=== PATIENT | female | born 1995 | race Hispanic/Latino ===

== ENCOUNTER 2024-08-24 14:39 | Outpatient (CLI) | payer BC | END 2024-08-24 14:40 | disposition home or self-care (01) | LOC: CSHMRI 14:39 | PROVIDERS: ATTEND Nurse Practitioner Family | DX: M47.22 Other spondylosis with radiculopathy, cervical region (principal); M43.8X2 Other specified deforming dorsopathies, cervical region | CPT/HCPCS: 72141 ==

== ENCOUNTER 2025-07-10 12:27 | Emergency (ER) | payer BC ==
[2025-07-10] MEDS ORDERED: diphenhydrAMINE 50 MG/ML VIAL ONE (13:23)
[2025-07-10] MEDS ORDERED: Metoclopramide HCl 10 MG (2 mL) VIAL ONE (13:24)
[2025-07-10] MEDS ORDERED: Acetaminophen 500 MG TAB ONE (13:24)
[2025-07-10 14:07] LABS: #Basophils 0.03 10x3/uL (0.0-0.2); #Eosinophils 0.18 10x3/uL (0.0-0.5); #Monocytes 0.50 10x3/uL (0.0-1.1); #Neutrophils 5.23 10x3/uL (1.5-8.4); %Basophils 0.4 % (0.0-2.0); %Eosinophils 2.3 % (0.0-6.0); %Lymphocytes 25.3 % (18.0-47.0); %Monocytes 6.3 % (0.0-10.0); %Neutrophils 65.2 % (40.0-75.0); Hematocrit 41.4 % (34.9-44.5); Hemoglobin 13.3 g/dL (12.0-15.5); Mean Corpuscular Hemoglobin 30.3 pg (27.0-33.0); Mean Corpuscular Volume 94.3 fL (81.6-98.3); Platelet Count 380 10x3/uL (150-450); Red Blood Cell (RBC) Count 4.39 10x6/uL (3.90-5.03); White Blood Cell (WBC) Count 8.00 10x3/uL (3.5-10.5)
[2025-07-10 14:27] LABS: BHCG - Serum Negative (NEGATIVE); Pregs Control Background? CLEAR/WHITE (CLR/WHITE); Pregs Control Bar Appear? YES (CONTROL BAR)
[2025-07-10 14:33] LABS: ALT (SGPT) 53 U/L (Less than 34); AST (SGOT) 34 U/L (11-34); Albumin 4.1 g/dL (3.1-4.5); Alkaline Phosphatase 82 U/L (40-110); Anion Gap 10 mmol/L (10-20); BUN (Urea Nitrogen) 10 mg/dL (7.0-18.7); Bilirubin, Total 0.2 mg/dL (0.3-1.2); Calc. Creatinine Clearance 0 mL/min (70-130); Calcium 9.2 mg/dL (7.8-10.44); Carbon Dioxide 30 mmol/L (22-29); Chloride 106 mmol/L (98-107); Globulin 2.8 g/dL (2.4-3.5); Glucose 83 mg/dL (70-105); Potassium 4.1 mmol/L (3.5-5.1); Sodium 142 mmol/L (136-145)
[2025-07-10] MEDS ORDERED: Ketorolac Tromethamine 30 MG (1 mL) VIAL ONE (14:51)
== END 2025-07-10 15:56 | disposition home or self-care (01) ==
LOC: CSHERS 12:27
DX: R51.9 Headache, unspecified (principal)
CPT/HCPCS: 36415; 70450; 80053; 84703; 85025; 96374; 96375; J1200; J1885; J2765